=== PATIENT | male | born 1950 | race Caucasian/White ===

== ENCOUNTER → 2017-01-22 | Outpatient (CLI) | payer OTHER | LOC: CIMAGING 10:51 | PROVIDERS: ATTEND Family Medicine | DX: M77.8 Other enthesopathies, not elsewhere classified (principal) | CPT/HCPCS: 73070-PO ==

== ENCOUNTER → 2017-02-14 | Outpatient (CLI) | payer OTHER | LOC: CIMAGING 10:26 | PROVIDERS: ATTEND Orthopaedic Surgery | DX: Z01.818 Encounter for other preprocedural examination (principal); M19.012 Primary osteoarthritis, left shoulder | CPT/HCPCS: 73200-PO ==

== ENCOUNTER 2017-03-24 05:59 | Inpatient (IN) | payer OTHER ==
[2017-03-24] MEDS ORDERED: LIDOCAINE 1% 2 ML INJ ONE (06:35)
[2017-03-24] MEDS ORDERED: LIDOCAINE 1% 5 ML SDV ID PRN (06:39)
[2017-03-24] MEDS ORDERED: LR 1,000 ML IV ONE (06:39)
[2017-03-24] MEDS ORDERED: fentaNYL 100 MCG/2 ML INJ ONE ×3 (06:59→10:30)
[2017-03-24] MEDS ORDERED: ROPIVACAINE HCL 20 MG/10 ML INJ EP ONE (06:59)
[2017-03-24] MEDS ORDERED: PROPOFOL 200 MG/20 ML VIAL ONE (07:00)
[2017-03-24] MEDS ORDERED: ONDANSETRON 4 MG/2 ML VIAL ONE (07:01)
[2017-03-24] MEDS ORDERED: LIDOCAINE 2% 5 ML SDV ONE (07:01)
[2017-03-24] MEDS ORDERED: LIDOCAINE 2% JELLY 5 ML TUBE ONE (07:01)
[2017-03-24] MEDS ORDERED: METOCLOPRAMIDE 10 MG/2 ML VIAL ONE (07:01)
[2017-03-24] MEDS ORDERED: ROPIVACAINE HCL 150 MG/30 ML INJ ONE (07:01)
[2017-03-24] MEDS ORDERED: BUPIVACAINE 0.25% 30 ML SDV ONE (07:12)
[2017-03-24] MEDS ORDERED: MIDAZOLAM 2 MG/2 ML VIAL ONE (07:18)
[2017-03-24] MEDS ORDERED: ceFAZolin 2 GM/DEXTROSE 100 ML IV ONE (07:30)
[2017-03-24] MEDS ORDERED: epHEDrine SULFATE 10 MG/ML SYR ONE (08:25)
[2017-03-24] MEDS ORDERED: KETOROLAC 30 MG/1 ML SDV ONE (10:06)
[2017-03-24] MEDS ORDERED: HYDROmorphONE/DILAUDID 1 MG/ML SYR IVP PRN (10:26)
[2017-03-24] MEDS ORDERED: ACETAMINOPHEN 325 MG TAB PO PRN (10:26)
[2017-03-24] MEDS ORDERED: D5W 1/2 NS W/ 20 KCl/L 1,000 ML IV SCH (10:30)
[2017-03-24] MEDS ORDERED: ONDANSETRON 4 MG/2 ML VIAL IVP PRN (10:35)
--- NOTE | 2017-03-24 10:41 | POSTOPPROG ---
Post Op Note Date of Operation: 03/24/17 Surgeon: Roula Gallego Cloth Mercerizer Operator: ruben Valles PA-c Anesthesiologist: Dr. Sanchez Anesthesia: GET(General Endotracheal) Pre-op Diagnosis: left shoulder osteoarthritis Post-op Diagnosis: left shoulder osteoarthritis Procedure: left total shoulder arthroplasty Inf/Abcess present in the surg proc area at time of surgery?: No Depth: Deep Incisional (Fascial) EBL: 100-500 Drains: Other (none)
--- NOTE | 2017-03-24 11:03 | GOP ---
[f rep st] OPERATIVE REPORT DATE OF OPERATION: 03/24/2017 SURGEON: Roula Gallego MD NEWSSTAND VENDOR: Ric Valles PA-C. Medically required for positioning of the arm during open total shoulder and careful retraction of vital neurovascular structures such as the axillary nerve. PREOPERATIVE DIAGNOSIS: L shoulder arthritis POSTOPERATIVE DIAGNOSIS: same PROCEDURE PERFORMED: L total shoulder replacement. Biceps tenodesis Implants: Arthrex. 10 stem. 50 head. Large vault lock glenoid FINDINGS: ESTIMATED BLOOD LOSS: 300 cc. INDICATIONS: 66-year-old male with end-stage left shoulder osteoarthritis. Patient presents for operative arthroplasty and pain relief. DESCRIPTION OF PROCEDURE: Patient identified in the preoperative holding area. Consent laterality and preoperative antibiotics were confirmed and delivered. All questions were answered. Primary care assessment and MRSA nasal swab were identified. He is negative for MRSA. Left shoulder was identified. His significant other was at the bedside. Patient brought to the operating room, interscalene block by Anesthesia. General anesthesia. Beach chair position. 30 degree head of bed. The back of the beach chair scapular bump was placed. Back of the beach chair was kept in place to provide scapular support. The left upper extremity was prepped and draped in usual sterile fashion. Surgical time-out was performed. Deltopectoral interval. Cephalic vein taken with the deltoid. We placed Kolbel retractors. Clavipectoral fascia was taken down. Kolbel retractors placed underneath the conjoined tendon and the deltoid. The subdeltoid adhesions were freed. A subscap lesser tuberosity osteotomy was performed. Biceps tenodesis was performed to the pec tendon. The pec tendon was released by 1 cm. We followed the long head biceps in through the rotator interval. The rotator cuff looked robust supraspinatus and infraspinatus. With progressive external rotation, we did inferior capsular release while protecting the axillary nerve. We got the arm to about 120 degrees of external rotation and did a humeral osteotomy freehand. We placed the humeral head protector and then went ahead and took the arm out of the [place] for the glenoid exposure. With a Fukuda and Bankart retractor, we did a subscap release on the labral capsule junction as well as an inferior capsular release protecting the axillary nerve with a finger. We had a nice exposure of the glenoid. We did a posterior capsular release. With the arm on the [place], 2 sharp Homans behind the glenoid, we had full exposure of the glenoid. We used a guide pin. Over-reamed with a Nautilus reamer large, drilled the central peg hole, and then prepped the glenoid. We ended up with a large glenoid with cemented top and bottom peg holes. The wound was copiously washed out with 250 cc of warm normal saline, and the humerus was then placed in a Walsh benjamin and dislocated again to reveal the humeral head osteotomy. We prepped the humerus canal finder. Broached up to 10, trialed with a 10, used a 50 mm head. Trimmed osteophytes and placed the real head. We had about 50% posterior excursion, and we repaired the subscap in about 10 degrees of external rotation. We had nice balance of the subscap with good releases anterior and posterior to the subscap. We palpated the axillary nerve, and it was a nice U shape band underneath the subscapularis. We used the Arthrex double row configuration technique with 2 sutures laterally and 4 sutures medially through the subscap with a horizontal and crisscross fashion according to the Arthrex technique. We had drilled 2 holes into the biceps groove and passed sutures from the implant prior to inserting the implant. The wound was copiously washed out with 500 cc of warm normal saline. We closed with 2-0 PDS, 3-0 Monocryl, and then Dermabond, Mastisol, Steri-Strips, and Mepilex dressing. 10 cc of 0.2% ropivacaine were injected around the subcutaneous incision. COMPLICATIONS: None. IMPLANTS USED: A 10 stem Arthrex 50 x 19 humeral head with a large glenoid vault lock cemented. TOTAL SURGICAL TIME: Approximately 2 hours and 15 minutes. DISPOSITION: Extubated, awake, to the PACU in stable condition. /[id number]/MODL MTDD
[2017-03-24] MEDS: KETOROLAC 30 MG/1 ML SDV IVP SCH ×2 (12:10→17:20)
[2017-03-24] MEDS: ceFAZolin 2 GM/DEXTROSE 100 ML IV SCH ×2 (13:33→21:23)
[2017-03-24] MEDS: DOCUSATE SODIUM 100 MG CAP PO SCH (20:09)
[2017-03-24] MEDS: oxyCODONE IR 5 MG TAB PO PRN ×2 (20:10→22:56)
[2017-03-25] MEDS: KETOROLAC 30 MG/1 ML SDV IVP SCH ×2 (00:10→05:38)
[2017-03-25] MEDS: oxyCODONE IR 5 MG TAB PO PRN ×4 (03:36→14:09)
[2017-03-25 03:47] VITALS: O2SAT 94
[2017-03-25 07:47] VITALS: BP 144/73; PULSE 74; RESP 15; TEMP 98.4
[2017-03-25] MEDS: DOCUSATE SODIUM 100 MG CAP PO SCH (08:09)
[2017-03-25] MEDS ORDERED: ENOXAPARIN 40 MG/0.4 ML SYR SC SCH (09:00)
--- NOTE | 2017-03-25 11:23 | SOAPPROG ---
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 sharma in 1 week. -call w/ any questions Plan: 03/25/17 11:21 Subjective: Patient denies any issues overnight, reports he slept well, pain is well controlled, denies any n/v/d/c, denies fevers or chills, denies cp/sob. denies numbness/tingling. reports he is ready to go home. reports he is voiding freely and passing gas, no BM yet. Objective: Vital Signs Temp Pulse Resp BP Pulse Ox 36.9 C 74 15 144/73 H 94 03/25/17 07:46 03/25/17 07:46 03/25/17 07:46 03/25/17 07:46 03/25/17 07:46 03/24/17 03/25/17 03/26/17 05:59 05:59 05:59 Intake Total 2900 Output Total 300 Balance 2600 dressings c/d/i, appropriately ttp over surgical site w/ normal sensation over shoulder/deltoid/axilla, no shoulder rom assessed, full elbow/wrist/digital rom , wrist extension intact and normal, radial/ulnar pulse 2+ nvid ICD10 Worksheet Patient Problems: Problems Problem Status Onset Shoulder arthritis Acute Shoulder arthritis Acute - ICD10 Problem Qualifiers (1) Shoulder arthritis (2) Shoulder arthritis
--- NOTE | 2017-04-01 11:01 | PDDCSUM ---
Discharge Summary Discharge Summary: Talon Hernandez is a pleasant 66 yo male, who underwent left total shoulder arthroplasty by dr. sharma on 03/24/17. patient tolerated the procedure well without complications. physical exam patient nvid w/ brisk cap refill with left upper extremity in sling, no shoulder rom assessed, dressings c/d/i 66 yo male, s/p left TSA by dr. 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 sharma or alo tolbert 7-10 days s/p surgery at [facility] -patient to call with any questions.
== END 2017-03-25 14:20 | disposition home or self-care (01) | DRG 483 ==
LOC: F3N 05:59 → OBSVTOIN 10:38 → F3N 11:44
PROVIDERS: ADMIT Orthopaedic Surgery; ATTEND Orthopaedic Surgery
PROC: 0RRK0JZ Replacement of Left Shoulder Joint with Synthetic Substitute, Open Approach (ICD-10-PCS; principal; 2017-03-24 07:30)
DX: M19.012 Primary osteoarthritis, left shoulder (principal); M75.22 Bicipital tendinitis, left shoulder; Z87.891 Personal history of nicotine dependence
CPT/HCPCS: 97161-GP; 97165-GO; C1713; G8978-GP-CI; G8979-GP-CI; G8980-GP-CI; G8987-GO-CI; G8988-GO-CI; G8989-GO-CI; J0171; J0690; J1170; J1650; J1885; J2250; J2405; J2704; J2765; J2795; J3010

== ENCOUNTER → 2018-03-09 | Outpatient (CLI) | payer OTHER | LOC: CIMAGING 12:18 | PROVIDERS: ATTEND Family Medicine | DX: M43.17 Spondylolisthesis, lumbosacral region (principal); E78.5 Hyperlipidemia, unspecified; E78.00 Pure hypercholesterolemia, unspecified; D64.9 Anemia, unspecified | CPT/HCPCS: 72100-PO ==